=== PATIENT | female | born 1950 | race Two or more races ===

== ENCOUNTER 2018-01-03 16:08 | Outpatient (CLI) | payer OTHER | END 2018-01-03 16:27 | disposition home or self-care (01) | LOC: RAD 16:08 | DX: M25.561 Pain in right knee (principal) ==

== ENCOUNTER → 2018-01-09 | Outpatient (CLI) | payer OTHER | END | disposition home or self-care (01) | LOC: TOM 11:45 | DX: M25.562 Pain in left knee (principal) ==